=== PATIENT | female | born 1975 | race Caucasian/White ===

== ENCOUNTER 2025-04-10 08:11 | Outpatient (CLI) | payer MEDICARE | END 2025-04-10 08:12 | disposition home or self-care (01) | LOC: CSHMAMMO 08:11 | PROVIDERS: ATTEND Physician Assistant | DX: Z12.31 Encounter for screening mammogram for malignant neoplasm of breast (principal); N63.10 Unspecified lump in the right breast, unspecified quadrant; R92.333 Mammographic heterogeneous density, bilateral breasts | CPT/HCPCS: 77063; 77067 ==